=== PATIENT | female | born 1975 | race Caucasian/White ===

== ENCOUNTER 2018-03-11 22:41 | Inpatient (IN) | payer MEDICAID ==
[~2018-03-11] VITALS: Ht 167.6 cm; Wt 103.2 kg
[~2018-03-11 22:41] MED LIST: LISI-167 PO; METF850T2 PO; OXYC-302 PO; TOPI50TA8 PO
[2018-03-11] MEDS ORDERED: LABETALOL 5MG/ML, 20ML ONE (22:57)
[2018-03-11] MEDS ORDERED: MORPHINE SULFATE 4 MG/ML, 1ML IVPush ONE (23:00)
[2018-03-11] MEDS ORDERED: LABETALOL 5MG/ML, 20ML IVPush ONE (23:00)
[2018-03-11] MEDS ORDERED: SODIUM CHLORIDE FLUSH 10ML SYR IVF ONE (23:00)
[2018-03-11] MEDS ORDERED: ONDANSETRON 2MG/ML, 2ML IVPush ONE (23:00)
[2018-03-11] MEDS ORDERED: MORPHINE SULFATE 4 MG/ML, 1ML ONE (23:01)
[2018-03-11] MEDS ORDERED: ONDANSETRON ODT 4 MG ONE (23:02)
[2018-03-11] MEDS ORDERED: LORazepam 2 MG/ML, 1ML ONE (23:04)
[2018-03-11] MEDS ORDERED: METOCLOPRAMIDE 5 MG/ML, 2ML ONE (23:07)
[2018-03-11 23:08] LABS: PH, VENOUS 7.426 pH (7.320-7.420)
[2018-03-11 23:15] LABS: BASOPHILS # (AUTO) 0.06 x10^3/uL (0-0.1); BASOPHILS % (AUTO) 1 % (0-1); EOSINOPHILS # (AUTO) 0.35 x10^3/uL (0-0.4); EOSINOPHILS % (AUTO) 4 % (1-7); LYMPHOCYTES # (AUTO) 3.19 x10^3/uL (1-3.4); LYMPHOCYTES % (AUTO) 35 % (22-44); MD NO; MEAN CORPUSCULAR HEMOGLOBIN 28.8 pg (27.0-34.8); MEAN CORPUSCULAR HGB CONC 34.1 g/dL (32.4-35.8); MEAN CORPUSCULAR VOLUME 84.5 fL (80-100); MEAN PLATELET VOLUME 8.6 fL (7.4-10.4); MONOCYTES # (AUTO) 0.67 x10^3/uL (0.2-0.8); MONOCYTES % (AUTO) 7 % (2-9); NEUTROPHILS # (AUTO) 4.86 x10^3/uL (1.8-6.8); NEUTROPHILS % (AUTO) 53 % (42-75); PLATELET COUNT 239 x10^3/uL (130-400); RED BLOOD COUNT 5.77 x10^6/uL (3.82-5.3); RED CELL DISTRIBUTION WIDTH 13.3 % (9.6-15.2)
[2018-03-11 23:20] LABS: ACETONE, SERUM Trace (10mg/dL) mg/dL (Negative); INTERNATIONAL NORMALIZED RATIO 0.94 (0.93-1.1); PROTHROMBIN TIME 9.7 Seconds (9.6-11.5)
[2018-03-11 23:23] LABS: ALBUMIN 3.8 g/dL (3.4-5.0); ANION GAP 7 mmol/L (5-15); CHLORIDE 99 mmol/L (98-107)
[2018-03-11 23:26] LABS: ALANINE AMINOTRANSFERASE 32 U/L (12-78); ALKALINE PHOSPHATASE 98 U/L (45-117); BILIRUBIN,TOTAL 0.2 mg/dL (0.2-1.0); CREATININE 0.87 mg/dL (0.55-1.02); SALICYLATE LEVEL 3.3 mg/dL (2.8-20.0); TOTAL PROTEIN 7.9 g/dL (6.4-8.2)
[2018-03-11 23:27] LABS: ACETAMINOPHEN < 2 mcg/mL (10-30)
[2018-03-11 23:28] LABS: TROPONIN I < 0.015 ng/mL (0.000-0.045)
[2018-03-11] MEDS ORDERED: POTASSIUM CHLORIDE 40 MEQ in SODIUM CHLORIDE 0.9% 500 ML IV ONE (23:30)
[2018-03-11] MEDS ORDERED: LORazepam 2 MG/ML, 1ML IVPush ONE (23:30)
[2018-03-11] MEDS ORDERED: METOCLOPRAMIDE 5 MG/ML, 2ML IVPush ONE (23:30)
[2018-03-12] MEDS ORDERED: SODIUM CHLORIDE 0.9% 1,000 ML IV SCH (00:07)
[2018-03-12] MEDS ORDERED: POTASSIUM CHLORIDE 20 MEQ TAB.ER.PRT PO ONE (00:30)
[2018-03-12] MEDS ORDERED: ONDANSETRON 2MG/ML, 2ML IVPush PRN (00:30)
[2018-03-12 01:30] VITALS: BP 166/102
[2018-03-12 04:00] VITALS: BP 133/85
[2018-03-12 04:52] LABS: ANION GAP 8 mmol/L (5-15); CALCIUM 8.2 mg/dL (8.5-10.1); CHLORIDE 105 mmol/L (98-107)
[2018-03-12 04:53] LABS: CREATININE 0.82 mg/dL (0.55-1.02)
[2018-03-12 04:58] LABS: TROPONIN I < 0.015 ng/mL (0.000-0.045)
[2018-03-12] MEDS: LABETALOL 100 MG TABLET PO SCH ×2 (04:58→09:18)
[2018-03-12 05:10] LABS: MICROSCOPIC AUTO
[2018-03-12 05:26] LABS: AMPHETAMINE SCREEN, URINE Positive (Negative); BARBITURATE SCREEN, URINE Negative (Negative); BENZODIAZEPINE SCREEN, URINE Negative (Negative); CANNABINOID SCREEN, URINE Negative (Negative); COCAINE SCREEN, URINE Negative (Negative); METHADONE SCREEN, URINE Negative (Negative); OPIATE SCREEN, URINE Positive (Negative)
[2018-03-12 05:27] LABS: CULTURE INDICATED? YES
[2018-03-12] MEDS: INSULIN LISPRO 100 UNITS/ML, PEN SQ-INSULIN SCH ×6 (05:50→21:46)
[2018-03-12] MEDS ORDERED: MAGNESIUM SULFATE PMX 2GM/50ML 50 ML IV ONE (06:00)
[2018-03-12] MEDS ORDERED: LABETALOL 5MG/ML, 20ML IVPush PRN (06:00)
[2018-03-12 06:23] LABS: HEMOGLOBIN A1C 11.2 % (4.2-6.3)
[2018-03-12] MEDS ORDERED: ACETAMINOPHEN 325 MG TABLET ONE (09:35)
[2018-03-12 10:30] LABS: TROPONIN I < 0.015 ng/mL (0.000-0.045)
[2018-03-12] MEDS ORDERED: MAGNESIUM SULFATE 4 GM in SODIUM CHLORIDE 0.9% 100 ML IV ONE (10:30)
[2018-03-12] MEDS: ENOXAPARIN 40 MG/0.4 ML SQ SCH (11:04)
[2018-03-12] MEDS: ASA/APAP/ CAFFEINE TABLET PO PRN (11:38)
[2018-03-12] MEDS: LISINOPRIL 20 MG TABLET PO SCH ×2 (11:46→21:46)
[2018-03-12] MEDS: INSULIN GLARGINE 100 UNITS/ML, PEN SQ-INSULIN SCH (17:40)
[2018-03-12] MEDS: FAMOTIDINE 20 MG TABLET PO SCH (21:46)
[2018-03-13 05:09] LABS: BASOPHILS # (AUTO) 0.05 x10^3/uL (0-0.1); BASOPHILS % (AUTO) 1 % (0-1); EOSINOPHILS # (AUTO) 0.43 x10^3/uL (0-0.4); EOSINOPHILS % (AUTO) 5 % (1-7); LYMPHOCYTES # (AUTO) 2.82 x10^3/uL (1-3.4); LYMPHOCYTES % (AUTO) 32 % (22-44); MD NO; MEAN CORPUSCULAR HEMOGLOBIN 28.9 pg (27.0-34.8); MEAN CORPUSCULAR HGB CONC 33.4 g/dL (32.4-35.8); MEAN CORPUSCULAR VOLUME 86.6 fL (80-100); MEAN PLATELET VOLUME 8.8 fL (7.4-10.4); MONOCYTES # (AUTO) 0.61 x10^3/uL (0.2-0.8); MONOCYTES % (AUTO) 7 % (2-9); NEUTROPHILS # (AUTO) 5.04 x10^3/uL (1.8-6.8); NEUTROPHILS % (AUTO) 56 % (42-75); PLATELET COUNT 227 x10^3/uL (130-400); RED BLOOD COUNT 4.57 x10^6/uL (3.82-5.3); RED CELL DISTRIBUTION WIDTH 14.1 % (9.6-15.2)
[2018-03-13 05:10] LABS: ALANINE AMINOTRANSFERASE 26 U/L (12-78); ALBUMIN 2.8 g/dL (3.4-5.0); ANION GAP 7 mmol/L (5-15); CALCIUM 8.2 mg/dL (8.5-10.1); CHLORIDE 105 mmol/L (98-107); CREATININE 0.76 mg/dL (0.55-1.02)
[2018-03-13 05:11] LABS: ALKALINE PHOSPHATASE 58 U/L (45-117); BILIRUBIN,TOTAL 0.5 mg/dL (0.2-1.0)
[2018-03-13] MEDS ORDERED: POTASSIUM CHLORIDE 20 MEQ TAB.ER.PRT PO ONE ×2 (06:00→08:00)
[2018-03-13] MEDS: INSULIN GLARGINE 100 UNITS/ML, PEN SQ-INSULIN SCH (07:59)
[2018-03-13] MEDS: INSULIN LISPRO 100 UNITS/ML, PEN SQ-INSULIN SCH ×4 (07:59→20:35)
[2018-03-13] MEDS: FAMOTIDINE 20 MG TABLET PO SCH ×2 (09:49→20:34)
[2018-03-13] MEDS: LISINOPRIL 20 MG TABLET PO SCH ×2 (09:49→20:34)
[2018-03-13] MEDS: ENOXAPARIN 40 MG/0.4 ML SQ SCH (09:51)
[2018-03-13] MEDS ORDERED: LISINOPRIL 10 MG TABLET PO SCH (11:00)
[2018-03-13 14:46] VITALS: BP 127/82
[2018-03-13 19:59] VITALS: BP 161/100
[2018-03-13 22:10] VITALS: BP 177/129
[2018-03-13] MEDS ORDERED: hydrALAzine 20 MG/ML, 1ML IV PRN (23:00)
[2018-03-13] MEDS: LISINOPRIL 10 MG TABLET PO SCH (23:02)
[2018-03-13 23:30] VITALS: BP 172/111
[2018-03-14] MEDS ORDERED: hydrALAzine 20 MG/ML, 1ML IV ONE
[2018-03-14 01:20] VITALS: BP 174/112
[2018-03-14] MEDS ORDERED: LABETALOL 5MG/ML, 20ML IVPush PRN (01:30)
[2018-03-14 02:20] VITALS: BP 150/82
[2018-03-14] MEDS ORDERED: hydrALAzine 20 MG/ML, 1ML IV PRN (03:00)
[2018-03-14] MEDS ORDERED: CARVEDILOL 6.25 MG TABLET PO SCH (06:00)
[2018-03-14] MEDS ORDERED: METOPROLOL TARTRATE 25 MG TABLET PO SCH (07:00)
[2018-03-14 07:05] VITALS: BP 169/95
[2018-03-14] MEDS: ASA/APAP/ CAFFEINE TABLET PO PRN (07:20)
[2018-03-14] MEDS ORDERED: POTASSIUM CHLORIDE 20 MEQ TAB.ER.PRT PO SCH (08:00)
[2018-03-14] MEDS: INSULIN LISPRO 100 UNITS/ML, PEN SQ-INSULIN SCH ×2 (08:47→11:00)
[2018-03-14] MEDS: INSULIN GLARGINE 100 UNITS/ML, PEN SQ-INSULIN SCH (08:47)
[2018-03-14] MEDS: FAMOTIDINE 20 MG TABLET PO SCH (08:49)
[2018-03-14] MEDS ORDERED: HYDROCHLOROTHIAZIDE 25 MG TABLET PO SCH (09:00)
[2018-03-14] MEDS: ENOXAPARIN 40 MG/0.4 ML SQ SCH (10:47)
[2018-03-14] MEDS: LISINOPRIL 10 MG TABLET PO SCH (10:47)
[2018-03-14 10:50] VITALS: BP 153/109
[2018-03-14] MEDS ORDERED: INSULIN GLARGINE 100 UNITS/ML, PEN SQ-INSULIN SCH (21:00)
== END 2018-03-14 12:19 | disposition left against medical advice (07) | DRG 78 ==
LOC: ED 23:04 → EDIP 23:34 → SUATTDRO 03-12 00:06 → CCU 03-12 00:27 → 3NE 03-13 13:55
PROVIDERS: ADMIT Hospitalist; ATTEND Hospitalist
DX: I67.4 Hypertensive encephalopathy (principal); I16.1 Hypertensive emergency; E87.1 Hypo-osmolality and hyponatremia; I10 Essential (primary) hypertension; E66.01 Morbid (severe) obesity due to excess calories; E11.65 Type 2 diabetes mellitus with hyperglycemia; E87.6 Hypokalemia; F15.90 Other stimulant use, unspecified, uncomplicated; R45.1 Restlessness and agitation; Z53.21 Procedure and treatment not carried out due to patient leaving prior to being seen by health care provider; F17.210 Nicotine dependence, cigarettes, uncomplicated; Z79.4 Long term (current) use of insulin; Z68.36 Body mass index [BMI] 36.0-36.9, adult; Z91.14 Patient's other noncompliance with medication regimen; Z98.51 Tubal ligation status
CPT/HCPCS: 36415; 70450; 80048; 80053; 80307; 80329; 81001; 82010; 82140; 82803; 82962; 83036; 83735; 84100; 84443; 84484; 84703; 85025; 85610; 87081; 87086; 87147; 93005; 93306; 96365; 96375; J1650; J3475; J3480; G0480; J0360; J1815; J2060; J2765; J7030; J7040; J7050